=== PATIENT | female | born 1985 | race Caucasian/White ===

== ENCOUNTER 2020-03-09 22:36 | Emergency (ER) | payer BC, SELFPAY ==
[2020-03-09 22:40] VITALS: BP 120/83; PULSE 78; RESP 20; TEMP 36.3; O2SAT 100
--- NOTE | 2020-03-09 23:20 | ED.EXTPRO ---
HPI - Extremity Problem General Chief complaint: Extremity Problem,Nontraumatic Stated complaint: L leg cramping Time Seen by Provider: 03/09/20 23:17 History of Present Illness HPI Narrative: Cramps in the left calf for the past 3 days. Mild pain. No swelling. She had recent breast augmentation and is concerned that she may have a DVT due to being post-op. No CP, SOB. Related Data Home Medications Medication Instructions Recorded Confirmed escitalopram oxalate 20 mg PO DAILY 03/09/20 03/09/20 Allergies Allergy/AdvReac Type Severity Reaction Status Date / Time sertraline Allergy Unknown Nausea Verified 03/09/20 22:42 Review of Systems Review of Systems: All systems reviewed & are unremarkable except as noted in HPI and below Constitutional: Constitutional: Denies fever(s) Cardiovascular: Cardiovascular: Denies chest pain Respiratory: Respiratory: Denies dyspnea Neurologic: Denies dizziness, Denies numbness and Denies weakness PMFSH Past Medical History Medical History (Updated 03/10/20 @ 06:16 by Barrington Machado MD) Admission for breast augmentation Family History Family History Father Hypertension Mother Family history of malignant melanoma Other Family history of cardiovascular disease Social History Social History Smoking status: Never smoker Alcohol intake: never Exam Const: General: healthy appearing, no acute distress and alert Nutritional Appearance: well nourished Orientation/consciousness: patient oriented x3 HENMT: Head: normal to inspection Resp: Effort & Inspection: normal respiratory effort Auscultation: clear to auscultation bilaterally, no rales, no rhonchi and no wheezes Cardio: Jugular venous distension: no JVD Rate: regular rate Rhythm: regular rhythm Heart sounds: no murmurs Skin: General skin exam: normal color Neuro: General: patient oriented x3, moves all extremities and CN's II-XI intact bilaterally Speech: normal speech Gait exam (Neuro): Normal gait present Extrem: Other: mild left calf tenderness Psych: Appearance: well kempt Affect: normal affect Course Vital Signs Vital signs: Vital Signs Temperature 36.3 C L 03/09/20 22:40 Pulse Rate 78 03/09/20 22:40 Respiratory Rate 20 03/09/20 22:40 Blood Pressure 120/83 03/09/20 22:40 Pulse Oximetry 100 03/09/20 22:40 Temperature 36.3 C L 03/09/20 22:40 Pulse Rate 71 03/10/20 01:07 Respiratory Rate 15 03/10/20 01:07 Blood Pressure 116/86 03/10/20 01:07 Pulse Oximetry 100 03/10/20 01:07 Procedures Other Procedure Procedure 1: Other Procedure: Bedside ultrasound Femoral and popliteal vessels fully compressible. No DVT MDM - Extremity (Nontraumatic) Lab Data Result diagrams: 03/09/20 23:32 03/09/20 23:32 Labs: Lab Results 03/09/20 03/09/20 03/09/20 Range/Units 23:32 23:32 23:32 WBC 5.3 (4.5-10.0) K/mm3 RBC 3.87 L (4.2-5.4) M/mm3 Hgb 11.2 L (12.0-15.0) g/dL Hct 33.7 L (37.0-47.0) % MCV 87.1 (80-100) fl MCH 28.9 (26-34) pg MCHC 33.2 (32-36) g/dl RDW 11.7 (11.5-14.5) % Plt Count 405 H (150-375) k/mm3 MPV 9.2 (7.4-10.4) fl Immature Gran % (Auto) 0.2 (0-0.5) % Neut % (Auto) 45.6 (45.5-73.1) % Lymph % (Auto) 42.1 (18.3-44.2) % [place] % (Auto) 10.0 H (2.6-8.5) % Eos % (Auto) 1.5 (0-4.4) % Baso % (Auto) 0.6 (0.2-1.2) % Lymph # (Auto) 2.23 (0.9-3.2) K/mm3 [place] # (Auto) 0.5 (0.1-0.6) K/mm3 Eos # (Auto) 0.1 (0-0.3) K/mm3 Baso # (Auto) 0.0 (0.0-0.1) K/mm3 Abs Immat Gran (auto) 0.01 (0.00-0.031) K/mm3 Absolute Neuts (auto) 2.4 (1.3-6.7) K/mm3 Absolute Nucleated RBC 0.0 (0.0-0.012) K/mm3 Nucleated RBC % 0.0 (0.0-0.2) % PT 12.7 (11.1-14.7) Seconds INR 1.0 APTT 29.8 (22.3-36.8
[2020-03-09 23:41] LABS: Basophils Percent Auto 0.6 % (0.2-1.2); Eosinophils Absolute Auto 0.1 K/mm3 (0-0.3); Eosinophils Percent Auto 1.5 % (0-4.4); Hematocrit 33.7 % (37.0-47.0); Hemoglobin 11.2 g/dL (12.0-15.0); Immature Granulocyte Absolute 0.01 K/mm3 (0.00-0.031); Immature Granulocyte Percent A 0.2 % (0-0.5); Lymphocytes Absolute Auto 2.23 K/mm3 (0.9-3.2); Lymphocytes Percent Auto 42.1 % (18.3-44.2); Mean Corpuscular HGB Conc 33.2 g/dl (32-36); Mean Corpuscular Hemoglobin 28.9 pg (26-34); Mean Corpuscular Volume 87.1 fl (80-100); Mean Platelet Volume 9.2 fl (7.4-10.4); Monocytes Absolute Auto 0.5 K/mm3 (0.1-0.6); Neutrophils Absolute Auto 2.4 K/mm3 (1.3-6.7); Neutrophils Percent Auto 45.6 % (45.5-73.1); Platelet Count Result 405 k/mm3 (150-375); Red Blood Count 3.87 M/mm3 (4.2-5.4); Red Cell Distribution Width 11.7 % (11.5-14.5); White Blood Count 5.3 K/mm3 (4.5-10.0)
[2020-03-09 23:49] LABS: Prothrombin Time 12.7 Seconds (11.1-14.7)
[2020-03-09 23:50] LABS: Partial Thromboplastin Time 29.8 SECONDS (22.3-36.8)
[2020-03-09 23:56] LABS: Alanine Aminotransferase 15 U/L (4-35); Albumin Level 4.3 g/dL (3.5-5.1); Alkaline Phosphatase 44 U/L (38-126); Aspartate Amino Transferase 21 U/L (14-36); Bilirubin,Total 0.4 mg/dL (0.2-1.3); Blood Urea Nitrogen 11 mg/dL (7-17); Calcium 9.2 mg/dL (8.4-10.2); Carbon Dioxide 32 mmol/L (22-30); Chloride 102 mmol/L (98-107); Estimated CRCL calculation 82 ml/min; Estimated Glomerular Filt Rate > 60; Glucose 97 mg/dL (65-105); Potassium 3.7 mmol/L (3.4-5.0); Sodium 138 mmol/L (137-145)
[2020-03-10 01:07] VITALS: BP 116/86; PULSE 71; RESP 15; O2SAT 100
== END 2020-03-10 01:00 | disposition home or self-care (01) ==
PROVIDERS: Emergency Provider Emergency Medicine; PCP Family Medicine
DX: M79.662 Pain in left lower leg (principal)
CPT/HCPCS: 36415; 80053; 85025; 85610; 85730; 99283

== ENCOUNTER → 2021-01-02 09:49 | Outpatient (CLI) | payer BC, SELFPAY ==
--- NOTE | ~2021-01-02 | US_ITS ---
US abdomen limited DATE: 01/02/2021 10:05 INDICATION: Jaundice TECHNIQUE: Real time imaging of the liver, pancreas, gallbladder COMPARISON: None FINDINGS: No hepatic or pancreatic space occupying mass lesion. Normal hepatopedal portal venous kiarra w direction. The common bile duct measures 2.7 mm. No gallstones or gallbladder wall thickening or pericholecystic fluid collection. Negative sonographic Morocho's sign. IMPRESSION: No significant abnormality Reviewed, dictated and finalized at [facility] Reviewed, dictated and finalized at [facility]. IMPRESSION: No significant abnormality
== END ==
PROVIDERS: PCP Family Medicine; Visit Provider Physician Assistant Medical
DX: R17 Unspecified jaundice (principal)
CPT/HCPCS: 76705